=== PATIENT | male | born 1995 | race Caucasian/White ===

== ENCOUNTER 2020-08-31 13:32 | Emergency (ER) | payer OTHER ==
[~2020-08-31] VITALS: Ht 188 cm; Wt 90.7 kg
[2020-08-31 15:22] VITALS: BP 136/84
== END 2020-08-31 15:23 | disposition home or self-care (01) ==
LOC: M ED 13:32
DX: S50.11XA Contusion of right forearm, initial encounter (principal); V43.52XA Car driver injured in collision with other type car in traffic accident, initial encounter; Y92.9 Unspecified place or not applicable; Y93.9 Activity, unspecified; Y99.9 Unspecified external cause status; Z88.0 Allergy status to penicillin